=== PATIENT | female | born 1980 | race Caucasian/White ===

== ENCOUNTER → 2024-01-05 07:56 | Outpatient (REF) | payer OTHER, SELFPAY | LOC: RAD 07:56 | PROVIDERS: ATTENDING PHYSICIAN Internal Medicine; FAMILY PHYSICIAN Internal Medicine | DX: R10.10 Upper abdominal pain, unspecified (principal) | CPT/HCPCS: 78227; A9537; J2805 ==

== ENCOUNTER → 2024-01-11 07:54 | Outpatient (REF) | payer OTHER, SELFPAY | LOC: RAD 07:54 | PROVIDERS: ATTENDING PHYSICIAN Internal Medicine; FAMILY PHYSICIAN Internal Medicine | DX: R11.0 Nausea (principal) | CPT/HCPCS: 78264; A9541 ==

== ENCOUNTER → 2024-06-06 11:24 | Outpatient (REF) | payer OTHER, SELFPAY | LOC: HWCARD 11:24 | PROVIDERS: ATTENDING PHYSICIAN Internal Medicine Gastroenterology; FAMILY PHYSICIAN Internal Medicine | DX: K31.84 Gastroparesis (principal); R11.0 Nausea | CPT/HCPCS: 93005 ==